=== PATIENT | female | born 2000 | race Two or more races ===

== ENCOUNTER 2019-01-26 21:12 | Emergency (ER) | payer OTHER ==
[~2019-01-26] VITALS: Ht 170.2 cm; Wt 90.7 kg
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
[2019-01-26 21:17] VITALS: BP 110/64
[2019-01-26] MEDS ORDERED: HYDROcodone/Acetamin 5/325 tab ORAL ONE (21:30)
[2019-01-26] MEDS ORDERED: IBUPROFEN600 MG ORAL (22:12)
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
[2019-01-26 22:15] VITALS: BP 110/64
--- NOTE | 2019-01-26 22:19 | NUR ---
ER DISCHARGE NOTE: Patient is cleared to be discharged per ERMD, pt is aox4, on room air, with stable vital signs. accompanied by significant other. pt was given dc and prescription instructions, pt was able to verbalize understanding, pt id band removed. pt is able to ambulate with steady gait. pt took all belongings.
--- NOTE | 2019-01-27 14:46 | Diagnostic Imaging Report ---
Indication: Trauma, pain Technique: 3 views of the cervical spine Comparison: none Findings: There is reversal of the normal cervical lordosis. Otherwise normal bony alignment. Vertebral body heights are preserved. The disc spaces are preserved. No acute fractures. No dislocations. Impression: Negative
== END 2019-01-26 22:15 | disposition home or self-care (01) ==
LOC: EDBD 21:12 → EMR 21:47
DX: S16.1XXA Strain of muscle, fascia and tendon at neck level, initial encounter (principal); J45.909 Unspecified asthma, uncomplicated; V43.62XA Car passenger injured in collision with other type car in traffic accident, initial encounter; Y92.410 Unspecified street and highway as the place of occurrence of the external cause
CPT/HCPCS: 72040; 99283